=== PATIENT | male | born 1985 | race Hispanic/Latino ===

== ENCOUNTER 2019-08-22 09:56 | Emergency (ER) | payer SELFPAY ==
[2019-08-22] MEDS ORDERED: MORPHINE SULFATE 4 MG/1ML SYG ONE (10:53)
== END 2019-08-22 11:50 | disposition home or self-care (01) ==
LOC: EDH 09:56
DX: K64.4 Residual hemorrhoidal skin tags (principal)
CPT/HCPCS: 96372; 99283; J2270